=== PATIENT | male | born 1945 | race Caucasian/White ===

== ENCOUNTER 2023-05-13 10:01 | Inpatient (IN) | payer OTHER, SELFPAY ==
[2023-05-13] VITALS (9 sets, daily range): BP systolic 77–113; BP diastolic 57–74; BMI 32.2
--- NOTE | 2023-05-13 07:48 | W.PN.CARDCBS ---
Addendum entered and electronically signed by Isaias Bentley DO 05/13/23 13:04:
I saw and examined the patient.
The Linux Administrator's note was reviewed and I agree with the note.
Comment:
Plan:
Currently in SVT/atrial tachycardia with ventricular rate. He is largely asymptomatic, however, episodes of hypotension after IV Lopressor.
In light of the fact that his rates are significantly rapid with inability to use Cardizem secondary to angioedema and difficult to control rates we discussed cardioversion and he was agreeable to this. He has not eaten today.
Discussed with electrophysiology.
Continue Xarelto.
We will proceed with Tikosyn loading
IV fluid hydration for blood pressure support.
Urgent echo shows preserved LV function.
Discussed with nursing.
Original Note:
Today's Communication / Plan
-
Lopressor 5 mg IV x1 now and then repeat 1-2x more for HR control
He is allergic to Cardizem, it causes angioedema
No missed doses of Xarelto
Need labs back to calculate CrCl and then dose Tikosyn
Impression / Plan
-
PCP: Dr. Sammi Saeed
Cardiology: Dr. Finch
EP: Dr. Dagoberto Jimenez
Impression:
Direct admission for Tikosyn loading for persistent Afib 05/13/23
Afib with RVR on admission 05/13/23
Paroxysmal to persistent Afib
s/p PVI 07/2016
s/p PVI 04/22/17
previous sotalol use, last dose 05/07/23
Chronic Xarelto OAC
Hepatitis C
Moderate MR
Recovered CM EF 45% 2016 and now 60-65% by echo 02/02/19
Echo 02/02/19: EF 60-65%, Mobile echo density consistent with mitral valve chordal structure, mild MR
Plan:
-Patient was seen in the office 04/24/23 following an admission to [facility] for cellulitis, hypomagnesemia and hypokalemia. During that admission he had a recurrence of Afib that was managed with a CV prior to d/c on 03/22/23. Patient was in SR
when he saw Dr. Finch in the office 04/24/23, but then called the office to report recurrence of Afib on 05/07/23. Patient was told to stop sotalol, increase Toprol XL to 50 mg daily and was scheduled for Tikosyn admission 05/13/23. Patient is not
sure what his HR was prior to admission, but HR on admission to IVU was 173 bpm. He complains of BAUGH, but no chest pain or palpitations.
-Patient presents for Tikosyn loading with rapid Afib. He took Toprol XL 25 mg this AM. Patient has a h/o angioedema allergy with Cardizem in the past. Will give Lopressor 5 mg IV x1 now and repeat in 5-10 minutes.
-Start Tikosyn once labs are back and CrCl can be calculated
-Patient has not missed any doses of Xarelto
-Patient with recent admission to [facility] for cellulitis and while there he had hypomagnesemia and hypokalemia. Follow up on electrolytes this admission
-Check pro-BNP
Progress Note - Flask Maker
Subjective
Date of Service: May 13, 2023
He has BAUGH that got worse after stopping sotalol last week
Objective
Labs:
Ordered and pending.
Hgb 13.5, WBC 12.8, Plt 233
Vital Signs and I&O:
100/74, HR 172, RR 18, pulse ox 93% RA
Physical Exam
Physical Exam
GEN: NAD, AAOx3
HEENT: EOMI, MMM
LUNGS: CTA B/L, no wheezes/rales
CV: Rapid and irreg irreg, difficult to appreciate murmur
ABD: soft, BS+, NT, ND
EXT: No clubbing, cyanosis, lesions or edema B/L
NEURO: Gross non-focal
SKIN: Warm, dry and pink. No rash
--- NOTE | 2023-05-13 10:24 | PTCARENOTE ---
patient arrived to unit, monitor on Afib with HR 173, BP 100/74, BAUGH and at rest . patient does feel high HR. INT placed and labs drawn and sent to lab. Karlene Bird aware of patients arrival to unit.
[2023-05-13 10:47] LABS: Hematocrit 38.5 % (39.0-52.0); Hemoglobin 13.5 g/dL (13.0-18.0); Mean Corp Hgb Conc. 35.1 g/dL (33.0-37.0); Mean Corpuscular Hgb 29.9 pg (27.0-31.0); Mean Corpuscular Volume 85.4 fL (80.0-94.0); Mean Platelet Volume 9.8 fL (7.4-10.4); Platelet Count 233 10^3/uL (130-400); Red Blood Cell Count 4.51 10^6/uL (4.70-6.10); Red Cell Dist. Width 13.3 % (11.5-14.5); White Blood Cell Count 12.8 10^3/uL (4.8-10.8)
[2023-05-13] MEDS: LOPRESSOR 5 MG IV (10:53)
[2023-05-13] MEDS: CATAPRES PO ×2 (10:56→19:34)
[2023-05-13] MEDS: NORVASC PO (10:56)
[2023-05-13] MEDS: TOPROL XL PO (10:57)
[2023-05-13] MEDS: ZESTRIL PO (10:57)
[2023-05-13] MEDS: LASIX 40 MG PO (10:58)
[2023-05-13] MEDS: FLUSH (NSS) 1 FLUSH IV (10:58)
[2023-05-13] MEDS: PROTONIX 40 MG PO (10:58)
--- NOTE | 2023-05-13 11:00 | PTCARENOTE ---
HR 172, lopressor 5mg IV given as ordered.
--- NOTE | 2023-05-13 11:06 | PTCARENOTE ---
Addendum entered by Kelsey Son RN 05/13/23 11:14:
repeat BP 91/58.
Original Note:
after 5mg IV lopressor HR decreased to 140's, BP 77/57, Karlene JOYNER in room.
[2023-05-13 11:10] LABS: ALT (SGPT) 35 U/L (0-50); AST (SGOT) 32 U/L (17-59); Albumin 4.2 g/dl (3.5-5.0); Alkaline Phosphatase 70 U/L (38-126); Blood Urea Nitrogen 16 mg/dl (9-20); Calcium 9.1 mg/dl (8.4-10.2); Carbon Dioxide 24 mmol/L (22-30); Chloride 98 mmol/L (98-107); Glucose 134 mg/dl (70-99); Magnesium 1.5 mg/dl (1.6-2.3); Potassium 3.8 mmol/L (3.5-5.1); Sodium 132 mmol/L (135-145); Total Bilirubin 1.2 mg/dl (0.2-1.3); Total Protein 7.7 g/dl (6.3-8.2); eGFR > 60.00
--- NOTE | 2023-05-13 11:21 | W.CARD.TIKOS ---
Initiate Tikosyn
-
I verify that the patient has not taken any verapamil (Isoptin/Calan), ketoconazole (Nizoral), cimetidine (Tagamet), trimethoprim (Trimpex), trimethoprim/sulfamethoxazole (Bactrim), megesterol (Megace), prochlorperazine (Compazine),
hydrochlorothiazide (HCTZ), dolutegravir (Tivicay) or any Class I or Class III anti-arrhythmic within the last three days
AND
I verify that the patient has not taken amiodarone within the last THREE months, or that the patient's amiodarone plasma concentration is <0.3 mcg/mL.
Creatinine 1.0 mg/dL (0.7-1.3) 05/13/23 10:41
CrCl89
Does patient have a Ventricular Conduction Abnormality: Yes
I have assessed the baseline QTc interval (using QT for heart rate less than 60 bpm) and deemed the patient is appropriate for Dofetilide therapy. I understand that Tikosyn is contraindicated if the QTc is >440msec (500msec in patients with
ventricular conduction abnormalities).
Baseline QTc (in msec): 465
QTc interval is greater than 440msec without conduction abnormality OR greater than 500msec with a conduction abnormality, but acceptable to proceed per Cardiology attending.
Reason for Administration with Prolonged QTc: Bundle Branch Block and Other Atrial Arrhythmia
Ordering Physician: Murray Finch
--- NOTE | 2023-05-13 11:27 | CM ---
Reviewed chart. Met with Mr. Rutledge to review discharge plans. He states prior to admission he resides with his significant other in a two story home with three steps to enter. He states he has a full flight of steps to get to bedroom. He states he
has a full bathroom on each level. He states prior to admission he was independent with ambulation and adls. He states he does not have any DME in the home. He states he has a prescription plan and uses [facility]. HE will need a three day
script to be sent to . Pharmacy for a three day supply to go home with him. Will check on co-pay for Dofetilide once dosing starts. Medical work-up in progress. The discharge plan is to return home with his significant other when medically
stable.
--- NOTE | 2023-05-13 11:29 | W.PN.UPDATE ---
Update Note
Progress Note Update
Back in to see patient and BP dropped to 77/47 after Lopressor 5 mg IV x1. Patient denies lightheadedness. Denies palpitations. HRs improved to 140s. He cannot take Cardizem due to allergy of angioedema. Last dose of sotalol was Saturday. Will give
NSS 250 ml bolus slowly. He has a h/o CM EF 45% in 2017 and then improved to 60% in 2019. Recheck echo now even though it is suboptimal with rapid HRs, if EF normal then can be more aggressive with IVFs. Will try another dose of Lopressor 2.5 mg IV
x1 now.
Update 1248: Back in to see patient. He remains in rapid atrial tachycardia. HRs improved to the 150s with Lopressor 2.5 mg IV x1, but BP down again to 84/47. Patient has not had anything to eat today. He took sips of water since admission. Will set
up for CV today. Tikosyn 500 mcg PO x1 ordered on admission, then held while working through rapid Atach, but after talking with EP will move forward with Tikosyn loading.
Check on patient in room 4 times, reviewed with nursing, EP and attending. 49 minutes thus far in critical care time. Will continue to follow.
--- NOTE | 2023-05-13 11:44 | PTCARENOTE ---
IV NSS infusing as ordered. Echo being done at bedside.
[2023-05-13 11:47] LABS: NT-proBNP 11300 pg/ml
[2023-05-13] MEDS: LOPRESSOR 2.5 MG IV (11:59)
[2023-05-13] MEDS: NSS 250 IV (12:00)
--- NOTE | 2023-05-13 12:04 | PTCARENOTE ---
Echo completed. IVF infusing as ordered, additional lopressor 2.5mg IV given as ordered. BP 86/69 with a HR 172. Dr. Bentley is at bedside.
--- NOTE | 2023-05-13 13:53 | PTCARENOTE ---
report given to research laboratory manager, patient is going for a CV.
--- NOTE | 2023-05-13 14:04 | PTCARENOTE ---
Addendum entered by Kelsey Son RN 05/13/23 14:07:
will obtain flu and covid swab.
Original Note:
patient went to pipelines laborer for CV, temp. 99.8, received call from pipelines laborer , CHRISTIANNE Bird.
--- NOTE | 2023-05-13 14:51 | ITS.CL.CARDI ---
Chopper Gun Operator - Cardioversion
Cardioversion
Procedure Report:
Date of Procedure: May 13 2023
Procedure: Cardioversion
Indication: Symptomatic atrial tachycardia/SVT
Performing Physician: Isaias Bentley DO, FACC
Technique: The patient was brought to the holding area. Signed informed consent was obtained. A time out was called and performed. The patient was anesthetized by the anesthesia service. Anticoagulation status was reviewed and appropriate. R2 pads
were placed anteriorly and posteriorly. A 200) J synchronized biphasic shock restored normal sinus rhythm without significant bradycardia. There were no complications.
Conclusion: Uncomplicated cardioversion from atrial tachycardia/SVT to sinus rhythm.
Recommendation: Routine post cardioversion care. Continue senior care anticoagulation.
[2023-05-13 14:55] LABS: COVID-19 Antigen Negative (Negative)
[2023-05-13] MEDS: TIKOSYN 500 MCG PO (15:45)
--- NOTE | 2023-05-13 15:47 | PTCARENOTE ---
patient returned from CV, monitor shows ST BP 105/65, HR 95. first dose of Tikosyn given as ordered and will obtain EKG at 1745.
--- NOTE | 2023-05-13 16:03 | PTCARENOTE ---
patient is neg. for flu, and patient afebrile.
[2023-05-13] MEDS: LIPITOR 20 MG PO (17:37)
[2023-05-13] MEDS: XARELTO 20 MG PO (17:37)
--- NOTE | 2023-05-13 17:43 | PTCARENOTE ---
obtaining EKG 2 hours after giving first dose of tikosyn, EKG shows aflutter, QTC 498, TT Dr. Candelaria Jimenez.
--- NOTE | 2023-05-13 23:53 | PTCARENOTE ---
Received pt at handoff. AOx3. Tele- sinus arrhythmia. HR 80-90s. Assessment noted as documented. Pt w/ moist productive cough sating at 96% RA. Pt offers no complaints at this time. POC reviewed w/ pt. Currently in bed; call wali w/in reach.
[2023-05-14] VITALS (7 sets, daily range): BP systolic 93–146; BP diastolic 62–87; BMI 31.9
[2023-05-14 04:37] LABS: Blood Urea Nitrogen 22 mg/dl (9-20); Calcium 8.8 mg/dl (8.4-10.2); Carbon Dioxide 29 mmol/L (22-30); Chloride 100 mmol/L (98-107); Estimated Creatinine Clearance 89 ml/min; Glucose 123 mg/dl (70-99); Potassium 3.6 mmol/L (3.5-5.1); Sodium 135 mmol/L (135-145); eGFR > 60.00
[2023-05-14] MEDS: TIKOSYN 500 MCG PO ×2 (05:01→17:33)
[2023-05-14] MEDS: CATAPRES 0.200000000000000011 MG PO ×2 (08:13→19:34)
[2023-05-14] MEDS: LASIX 40 MG PO (08:14)
[2023-05-14] MEDS: PROTONIX 40 MG PO (08:14)
[2023-05-14] MEDS: NORVASC 10 MG PO (08:14)
[2023-05-14] MEDS: TOPROL XL 50 MG PO (08:14)
[2023-05-14] MEDS: ZESTRIL 40 MG PO (08:14)
[2023-05-14] MEDS: NON-FORMULARY ITEM 4.79999999999999982 GRAM PO (08:15)
[2023-05-14] MEDS: FLUSH (NSS) 1 FLUSH IV ×4 (08:16→22:10)
--- NOTE | 2023-05-14 09:06 | PTCARENOTE ---
Received patient this morning sitting oob in the chair. Patient is worried that his cellulitis he had back in February has returned. Temp is 99.2, patient feels like he has slight chills, LLE is very red, warm and lateral area is firm. Cardiology
notified.
--- NOTE | 2023-05-14 09:47 | W.PN.CARDCBS ---
Addendum entered and electronically signed by Abdulaziz Bradford MD 05/14/23 11:51:
I saw and examined the patient.
The Inventory Associate And Driver's note was reviewed and I agree with the note.
Comment: 77M PMHx persistent atrial fibrillation who presents for Tikosyn load as direct admission
He underwent direct-current cardioversion yesterday and is subsequently maintaining sinus rhythm
Continue to monitor on telemetry
Serial EKGs, QTc is within normal limits
Tentative plan for discharge after fifth dose tomorrow
Appreciate hospital medicine input regarding possible recurrence of lower extremity cellulitis
Original Note:
Today's Communication / Plan
-
Hospitalists consult for cellulitis
Remains in SR, QTc stable with Tikosyn 500 mcg q 12 hours loading, 3rd dose tonight, 5th dose will be tomorrow night
Impression / Plan
-
PCP: Dr. Sammi Saeed
Cardiology: Dr. Finch
EP: Dr. Dagoberto Jimenez
Impression:
Direct admission for Tikosyn loading for persistent Afib 05/13/23
Afib with RVR on admission 05/13/23
Paroxysmal to persistent Afib
s/p PVI 07/2016
s/p PVI 04/22/17
previous sotalol use, last dose 05/07/23
Chronic Xarelto OAC
Hepatitis C
Moderate MR
Recovered CM EF 45% 2016 and now 60-65% by echo 02/02/19
Possible LLE cellulitis
Echo 02/02/19: EF 60-65%, Mobile echo density consistent with mitral valve chordal structure, mild MR
Echo 05/13/23: EF 52%, mild MR, mild to mod TR with PAP 19 mmHg
Plan:
-Patient came to as a direct admission for Tikosyn loading 05/13/23. Patient was in rapid Atach with HRs in the 170s on admission, but asymptomatic. HR control was difficult due to Cardizem allergy. Lopressor IV was given and he developed
hypotension. Finally patient had an urgent CV 05/13/23 with nondenominational of SR.
-Patient remains in SR with QTc 466 by ECG 05/14/23 AM after 2nd dose of Tikosyn 500 mcg.
-BP improved now that he is back in SR. Cont higher dose Toprol XL 50 mg daily that was started just prior to admission.
-Outpatient dose of clonidine 0.2 mg BID has been continued with hold parameters
-Outpatient dose of lisinopril 40 mg daily has been continued with hold parameters. Cre is stable at 0.8
-Patient has not missed any doses of Xarelto
-Patient with recent admission to [facility] for cellulitis and while there he had hypomagnesemia and hypokalemia. Magnesium was 1.5 on 05/13/23, will supplement. Potassium is 3.6 on 05/14/23, will supplement.
-pro-BNP [id number]. He denies SOB. Patient is at dry weight.
-Will ask Hospitalist for a consult for LLE erythema. Patient reports chills the night prior to admission. Temp up to 99.2 degrees Fahrenheit. He was treated for cellulitis at [facility] early March and he says he completed his outpatient
course of antibiotics.
HPI: Patient was seen in the office 04/24/23 following an admission to [facility] for cellulitis, hypomagnesemia and hypokalemia. During that admission he had a recurrence of Afib that was managed with a CV prior to d/c on 03/22/23. Patient was
in SR when he saw Dr. Finch in the office 04/24/23, but then called the office to report recurrence of Afib on 05/07/23. Patient was told to stop sotalol, increase Toprol XL to 50 mg daily and was scheduled for Tikosyn admission 05/13/23. Patient is
not sure what his HR was prior to admission, but HR on admission to IVU was 173 bpm. He complains of BAUGH, but no chest pain or palpitations.
Progress Note - Optometric Technologist
Subjective
Date of Service: May 14, 2023
He says that his LLE looks just like it did when he had cellulitis last month
Objective
Labs:
05/13/23 10:41
05/14/23 03:50
Labs
Hgb 13.5 g/dL (13.0-18.0) 05/13/23 10:41
Hct 38.5 % (39.0-52.0) L 05/13/23 10:41
Plt Count 233 10^3/uL (130-400) 05/13/23 10:41
Sodium 135 mmol/L (135-145) 05/14/23 03:50
Potassium 3.6 mmol/L (3.5-5.1) 05/14/23 03:50
BUN 22 mg/dl (9-20) H 05/14/23 03:50
Creatinine 0.8 mg/dL (0.7-1.3) 05/14/23 03:50
Glucose 123 mg/dl (70-99) H 05/14/23 03:50
Vital Signs and I&O:
Vital Signs
Temp Pulse Resp BP Pulse Ox
99.2 F 91 16 146/87 95
05/14/23 07:59 05/14/23 08:00 05/14/23 07:59 05/14/23 07:59 05/14/23 07:59
Vital Signs
Temp Pulse Resp BP Pulse Ox
99.2 F 91 16 146/87 95
05/14/23 07:59 05/14/23 08:00 05/14/23 07:59 05/14/23 07:59 05/14/23 07:59
Intake & Output
05/12/23 05/13/23 05/14/23 05/15/23
06:59 06:59 06:59 06:59
Intake Total 490 / 490 360 / 360
Balance 490 / 490 360 / 360
Physical Exam
Physical Exam
GEN: NAD, AAOx3
HEENT: EOMI, MMM
LUNGS: CTA B/L, no wheezes/rales
CV: Reg
ABD: soft, BS+, NT, ND
EXT: LLE erythematous, nontender, warm to touch. No clubbing, cyanosis, or edema B/L
NEURO: Gross non-focal
SKIN: Warm, dry and pink. No rash
[2023-05-14] MEDS: MAGNESIUM OXIDE 500 MG PO (10:42)
[2023-05-14] MEDS: KCL 40 MEQ PO (10:43)
--- NOTE | 2023-05-14 10:54 | CM ---
Reviewed chart. Met with Mr. Carpio to review discharge plans. Telephone call to [facility],([phone]) to check on co-pay for Dofetilide 500 mcg bid. His co-pay for one month is $30.41 and for a 90 day supply his co-pay would be
$91.23. Reviewed co-pay with him. He is agreeable to the co-pay. Telephone call to [facility] to check if they have Dofetilide in stock. [facility] had one bottle of 60 tablets of Dofetilide 500 mcg in stock. He will need a three day script
sent to . Pharmacy for a three day supply to be sent home with him. Medical work-up in progress. Prior to admission he resides with his significant other in a two story home with three steps to enter. He has a full flight of steps to get to
bedroom. He has a full bathroom on each floor. Prior to admission he was independent with ambulation and adls. He does not have any DME in the home. He has a prescription plan and uses [facility]. Medical work-up in progress. The
discharge plan is to return home with his significant other when medically stable.
--- NOTE | 2023-05-14 12:57 | CON.HOSP ---
Family Physician
-
Family Physician: Sammi Saeed DO
Chief Complaint
-
Left leg redness and pain
History of Present Illness
77-year-old male with a past medical history of atrial fibrillation on Xarelto, hypertension, hyperlipidemia, systolic CHF, hepatitis C, and ulcerative colitis was admitted by cardiology on 05/13/2023 for Tikosyn loading. Patient started having
chills 2 days ago, accompanied by low-grade fevers with a Tmax of 99.2. This morning, he developed erythema and tenderness of his left lower extremity. These are the exact same symptoms he had when he had cellulitis of his left lower extremity in
March 2023. He was treated with IV antibiotics at [place] at that time, and discharged on oral antibiotics. Currently the pain is 4 out of 10 in intensity. His leg is warm to the touch.
Medical History
Past Medical History
Past Medical History: Reports Other
Additional Past Medical History:
Recurrent paroxysmal atrial fibrillation status post JESU cardioversion 08/15/2017
History of 2 ablations in the past
Moderate mitral regurgitation
Premature atrial contractions
Cardiomyopathy with EF of 45% and mild to moderate MR
Essential hypertension
Hyperlipidemia
Ulcerative colitis
Hepatitis C
Osteoarthritis
Skin cancer
Obesity
Gastroesophageal reflux disease
Past Surgical History: Reports Other
Additional Past Surgical History:
Bilateral hip replacement
Left arm repair with steel plate
Umbilical hernioplasty
Nasal septal surgery
Social History
Tobacco: Former Smoker
Alcohol: Occasional
Drug: None
Personal: Partner
Living: With Family
Family History
Family History: Reviewed & Not Pertinent
Allergies / Home Medications
Allergies reflects when Allergies were last updated in [employer]
Home Medications with original date entered in [employer]
Allergy/Medication List:
Allergies
Allergy/AdvReac Type Severity Reaction Status Date / Time
diltiazem [From Cardizem] Allergy Severe Tongue Verified 08/15/17 12:14
Swelling
HAYFEVER Allergy CONGESTION Uncoded 08/15/17 12:14
Home Medications Table - record
Medication Instructions Recorded Confirmed
clonidine HCl 0.1 mg tablet 0.2 mg PO BID 02/07/16 05/13/23
pantoprazole 40 mg tablet,delayed 40 mg PO DAILY 02/07/16 05/13/23
release
furosemide 40 mg tablet 40 mg PO DAILY ##30 02/08/16 05/13/23
atorvastatin 10 mg tablet 10 mg PO QPM 07/23/16 05/13/23
rivaroxaban 20 mg tablet (Xarelto) 20 mg PO QPM ##30 07/23/16 05/13/23
calcium carbonate 600 mg calcium 600 mg PO DAILY 08/15/17 05/13/23
(1,500 mg) tablet
cholecalciferol (vitamin D3) 50 1,000 unit PO DAILY 08/15/17 05/13/23
mcg (2,000 unit) tablet
magnesium oxide 500 mg capsule 500 mg PO DAILY 08/15/17 05/13/23
metoprolol succinate 25 mg 25 mg PO DAILY ##30 08/17/17 05/13/23
tablet,extended release 24 hr
mesalamine 1.2 gram tablet,delayed 4.8 g PO DAILY 05/13/23 05/13/23
release
Physical Exam
Vital Signs
Vital Signs
Temp Pulse Resp BP Pulse Ox
99.1 F 84 20 122/83 95
05/14/23 11:17 05/14/23 11:45 05/14/23 11:17 05/14/23 11:15 05/14/23 11:17
Physical Exam
General: No Apparent Distress
HEENT: Normocephalic and Moist Mucous Membranes
Respiratory: Clear
Cardiac: S1/S2 and Irregular Rhythm
GI: Soft, Non Tender, Non Distended and Normal Bowel Sounds
Musculoskeletal: No Clubbing and No Cyanosis
Skin: Other (Left calf and grimaldo are warm to the touch, with scattered erythema)
Neuro: Awake, Alert and Oriented
Psych: Calm
Laboratory Results
-
Laboratory Results
05/14/23 03:50
Total Bilirubin 1.2 mg/dl (0.2-1.3) 05/13/23 10:41
AST 32 U/L (17-59) 05/13/23 10:41
ALT 35 U/L (0-50) 05/13/23 10:41
Alkaline Phosphatase 70 U/L (38-126) 05/13/23 10:41
Impression / Plan
-
HPI: 77-year-old male with a past medical history of atrial fibrillation on Xarelto, hypertension, hyperlipidemia, systolic CHF, hepatitis C, and ulcerative colitis was admitted by cardiology on 05/13/2023 for Tikosyn loading. Patient started having
chills 2 days ago, accompanied by low-grade fevers with a Tmax of 99.2. This morning, he developed erythema and tenderness of his left lower extremity. These are the exact same symptoms he had when he had cellulitis of his left lower extremity in
March 2023. He was treated with IV antibiotics at [place] at that time, and discharged on oral antibiotics. Currently the pain is 4 out of 10 in intensity. His leg is warm to the touch.
#Persistent atrial fibrillation
Tikosyn loading as per cardiology
Continue Xarelto, metoprolol
Cardiology planning for discharge after fifth dose of Tikosyn tomorrow
#Left lower extremity cellulitis
Check blood cultures, start IV Ancef
Check lower extremity Dopplers for completeness sake
Likely can be discharged on Keflex
#Chronic systolic CHF
Continue Lasix
#Benign essential hypertension
Continue amlodipine, clonidine, lisinopril
#Hyperlipidemia
Continue statin
#Ulcerative colitis
Continue mesalamine
#Gastroesophageal reflux disease
Continue PPI
#Obesity due to excess calories
Affects all aspects of care
DVT prophylaxis�Xarelto
Thank you for the consult, we will follow the patient along with you.
[2023-05-14 13:39] LABS: % Basophils 0.2 % (0-2); % Eosinophils 0.2 % (0-6); % Immature Granulocytes 0.3 % (0-0.5); % Monocytes 10.5 % (1.7-9.3); % Neutrophils 78.8 % (42.2-75.2); Absolute Lymphocytes 0.9 10^3/uL (1.2-3.4); Absolute Neutrophils 7.2 10^3/uL (1.4-6.5); Hematocrit 37.8 % (39.0-52.0); Hemoglobin 13.3 g/dL (13.0-18.0); Mean Corp Hgb Conc. 35.2 g/dL (33.0-37.0); Mean Corpuscular Hgb 30.4 pg (27.0-31.0); Mean Corpuscular Volume 86.3 fL (80.0-94.0); Mean Platelet Volume 9.6 fL (7.4-10.4); Nucleated Red Blood Cells % 0 % (-); Platelet Count 183 10^3/uL (130-400); Red Blood Cell Count 4.38 10^6/uL (4.70-6.10); Red Cell Dist. Width 13.3 % (11.5-14.5); White Blood Cell Count 9.2 10^3/uL (4.8-10.8)
[2023-05-14 14:09] LABS: Procalcitonin 0.26 ng/ml (0.0-0.25)
[2023-05-14] MEDS: ANCEF 5 IV ×2 (14:56→22:09)
--- NOTE | 2023-05-14 15:07 | PTCARENOTE ---
Patient seen by the hospitalist. Blood cultures and lab work sent. Patient started on ancef IV as ordered.
[2023-05-14] MEDS: XARELTO 20 MG PO (17:32)
[2023-05-14] MEDS: LIPITOR 20 MG PO (17:32)
[2023-05-14] MEDS: PERCOCET 5/325 1 TABLET PO (17:32)
[2023-05-14 17:48] LABS: Urine Albumin Negative (Neg - Trace); Urine Bilirubin Negative (Negative); Urine Character Clear (Clear); Urine Color Yellow; Urine Glucose Negative (Negative); Urine Ketone Negative (Negative); Urine Leukocyte Negative (Negative); Urine Nitrite Negative (Negative); Urine Occult Blood Trace (Negative); Urine Specific Gravity 1.015 (<1.030); Urine Urobilinogen Negative (Neg - 1+)
[2023-05-14 18:03] LABS: Urine White Cell 0-2 /HPF (0-5)
--- NOTE | 2023-05-14 21:53 | PTCARENOTE ---
Received pt at handoff. Tikosyn dose #3 administered by pina RN at 1800. 2 hour post EKG obtained. QTC 541. Edwardo Giordano MD notified. Tikosyn dose #4 on hold until seen by cardiology per Edwardo Giordano MD. Pt offers no complaints at this time. POC
reviewed w/ pt. Tele remains in SR. Assessment noted as documented. Currently in bed; call wali w/in reach.
[2023-05-14] MEDS: PERCOCET 5/325 PO (22:15)
[2023-05-15] VITALS (7 sets, daily range): BP systolic 108–135; BP diastolic 70–95; BMI 31.9
[2023-05-15] MEDS: PERCOCET 5/325 1 TABLET PO ×2 (05:08→22:18)
[2023-05-15] MEDS: ANCEF 5 IV ×3 (05:08→22:18)
[2023-05-15] MEDS: FLUSH (NSS) 1 FLUSH IV ×3 (05:08→14:44)
[2023-05-15 05:11] LABS: % Basophils 0.3 % (0-2); % Eosinophils 1.3 % (0-6); % Immature Granulocytes 0.3 % (0-0.5); % Monocytes 12.7 % (1.7-9.3); % Neutrophils 69.4 % (42.2-75.2); Absolute Eosinophils 0.1 10^3/uL (0-0.7); Absolute Monocytes 0.8 10^3/uL (0.1-0.6); Absolute Neutrophils 4.2 10^3/uL (1.4-6.5); Hemoglobin 12.5 g/dL (13.0-18.0); Mean Corp Hgb Conc. 34.7 g/dL (33.0-37.0); Mean Corpuscular Volume 86.3 fL (80.0-94.0); Mean Platelet Volume 10.3 fL (7.4-10.4); Nucleated Red Blood Cells % 0 % (-); Platelet Count 156 10^3/uL (130-400); Red Blood Cell Count 4.17 10^6/uL (4.70-6.10); Red Cell Dist. Width 13.2 % (11.5-14.5); White Blood Cell Count 6.1 10^3/uL (4.8-10.8)
[2023-05-15 05:25] LABS: Blood Urea Nitrogen 14 mg/dl (9-20); Calcium 8.4 mg/dl (8.4-10.2); Carbon Dioxide 28 mmol/L (22-30); Chloride 106 mmol/L (98-107); Estimated Creatinine Clearance 119 ml/min; Glucose 126 mg/dl (70-99); Magnesium 1.9 mg/dl (1.6-2.3); Potassium 3.6 mmol/L (3.5-5.1); Sodium 137 mmol/L (135-145); eGFR > 60.00
--- NOTE | 2023-05-15 08:37 | W.PN.HOSP.TC ---
Today's Communication/Plan
-
Continue IV Ancef while inpatient
Recommend discharge on Keflex 500 mg 4 times daily for 8 days upon discharge to complete a 10 day course
Assessment / Plan
Assessment / Plan
HPI: 77-year-old male with a past medical history of atrial fibrillation on Xarelto, hypertension, hyperlipidemia, systolic CHF, hepatitis C, and ulcerative colitis was admitted by cardiology on 05/13/2023 for Tikosyn loading.� Patient started having
chills 2 days ago, accompanied by low-grade fevers with a Tmax of 99.2.� This morning, he developed erythema and tenderness of his left lower extremity.� These are the exact same symptoms he had when he had cellulitis of his left lower extremity in
March 2023.� He was treated with IV antibiotics at [place] at that time, and discharged on oral antibiotics.� Currently the pain is 4 out of 10 in intensity.� His leg is warm to the touch.
#Persistent atrial fibrillation
Tikosyn loading as per cardiology
Continue Xarelto, metoprolol
Cardiology planning for discharge tomorrow
#Left lower extremity cellulitis
Continue IV Ancef while inpatient
Recommend discharge on Keflex 500 mg 4 times daily for 8 days upon discharge to complete a 10 day course
#Chronic systolic CHF
Continue Lasix
#Benign essential hypertension
Continue amlodipine, clonidine, lisinopril
#Hyperlipidemia
Continue statin
#Ulcerative colitis
Continue mesalamine
#Gastroesophageal reflux disease
Continue PPI
#Obesity due to excess calories
Affects all aspects of care
DVT prophylaxis�Xarelto
Thank you for the consult, we will follow the patient along with you.
Physical Exam
General: Obese, no Apparent Distress
HEENT: Normocephalic and Moist Mucous Membranes
Respiratory: Clear
Cardiac: S1/S2 and Irregular Rhythm
GI: Soft, Non Tender, Non Distended and Normal Bowel Sounds
Musculoskeletal: No Clubbing and No Cyanosis
Skin: Left calf and grimaldo are warm to the touch, with scattered erythema - now darkened
Neuro: Awake, Alert and Oriented
Psych: Calm
Anticipated Discharge: Within 24 hours
Subjective/Interval History
-
Date of Service: May 15, 2023
Patient reports low-grade fever, chills resolved. His left lower extremity pain has improved.
Objective Data
-
Labs:
Laboratory Results
05/15/23
04:58
WBC 6.1
Hgb 12.5 L
Hct 36.0 L
Plt Count 156
Sodium 137
Potassium 3.6
Chloride 106
Carbon Dioxide 28
BUN 14
Creatinine 0.5 L
Glucose 126 H
Calcium 8.4
Vital Signs:
Vital Signs
Temp Pulse Resp BP Pulse Ox
98.2 F 71 16 126/85 96
05/15/23 06:51 05/15/23 07:30 05/15/23 06:51 05/15/23 06:53 05/15/23 06:51
I&O
05/14/23 05/15/23 05/16/23
06:59 06:59 06:59
Intake Total 490 / 490 1000 / 1000
Balance 490 / 490 1000 / 1000
--- NOTE | 2023-05-15 08:37 | W.PN.CARDCBS ---
Addendum entered and electronically signed by sIaias Bentley DO 05/15/23 09:13:
I saw and examined the patient.
The Electrical Logging Engineer's note was reviewed and I agree with the note.
Comment:
Plan:
With increase in QTc, Tikosyn dose reduced to 250 mcg BID for today.
Observe today and lkely d/c tomorrow if QTc remains stable
Remains in sinus
Cont xarelto and Toprol
Appreciate hospitalist input regarding cellulitis
Outpt follow up to be arranged.
Discussed with nursing.
Original Note:
Today's Communication / Plan
-
decrease tikosyn to 250mcg Q12H for doses 4/5 today
follow QTc
continue toprol, xarelto
treatment of cellulitis per primary service
KCl 10 mEq daily. BMP in 1 week upon DC
likely for DC in AM
Impression / Plan
-
PCP: Dr. Sammi Saeed
Cardiology: Dr. Finch
EP: Dr. Dagoberto Jimenez
Impression:
Direct admission for Tikosyn loading for persistent Afib 05/13/23
Afib with RVR on admission 05/13/23
Paroxysmal to persistent Afib
s/p PVI 07/2016
s/p PVI 04/22/17
previous sotalol use, last dose 05/07/23
Chronic Xarelto OAC
Hepatitis C
Moderate MR
Recovered CM EF 45% 2016 and now 60-65% by echo 02/02/19
Possible LLE cellulitis
Echo 02/02/19: EF 60-65%, Mobile echo density consistent with mitral valve chordal structure, mild MR
Echo 05/13/23: EF 52%, mild MR, mild to mod TR with PAP 19 mmHg
Plan:
-he was a direct admission for tikosyn and was in rapid atach upon arrival. underwent urgent CV 05/13 with yazidism of SR.
-upon review of tele has remained mostly in SR with PACs and several brief episodes of atach.
-by review of EKGs, his QTc prolonged to 541ms after 3rd dose of tikosyn 05/14 PM. will reduce dose of tikosyn to 250mcg Q12H and follow. for doses 4/5 today. he will stay overnight to follow his QTc.
-continue higher dose Toprol XL 50 mg daily that was started just prior to admission.
-continue OP Xarelto
-pro-BNP 23629. He denies SOB. Patient is at dry weight. continue OP lasix 40mg daily.
-Outpatient dose of clonidine 0.2 mg BID has been continued with hold parameters
-Outpatient dose of lisinopril 40 mg daily has been continued with hold parameters. Cre is stable at 0.8
-he is being treated with IV ancef for LLE cellulitis per hospitalists. He was treated for cellulitis at [facility] early March and he says he completed his outpatient course of antibiotics.
-he was also hypokalemic and hypomagnesemic during [facility] admission. will place on standing dose of po KCl 10 mEq daily.
-will need BMP in 1 week upon DC
-for DC in AM
-d/w nursing. d/w hospitalist
HPI: Patient was seen in the office 04/24/23 following an admission to [facility] for cellulitis, hypomagnesemia and hypokalemia. During that admission he had a recurrence of Afib that was managed with a CV prior to d/c on 03/22/23. Patient was
in SR when he saw Dr. Finch in the office 04/24/23, but then called the office to report recurrence of Afib on 05/07/23. Patient was told to stop sotalol, increase Toprol XL to 50 mg daily and was scheduled for Tikosyn admission 05/13/23. Patient is
not sure what his HR was prior to admission, but HR on admission to IVU was 173 bpm. He complains of BAUGH, but no chest pain or palpitations.
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
Subjective
Date of Service: May 15, 2023
Denies chest pain, shortness of breath. Reports heart rates are better this morning than last evening. Reports left leg feeling improved.
Objective
Labs:
05/15/23 04:58
05/15/23 04:58
Labs
Hgb 12.5 g/dL (13.0-18.0) L 05/15/23 04:58
Hct 36.0 % (39.0-52.0) L 05/15/23 04:58
Plt Count 156 10^3/uL (130-400) 05/15/23 04:58
Sodium 137 mmol/L (135-145) 05/15/23 04:58
Potassium 3.6 mmol/L (3.5-5.1) 05/15/23 04:58
BUN 14 mg/dl (9-20) 05/15/23 04:58
Creatinine 0.5 mg/dL (0.7-1.3) L 05/15/23 04:58
Glucose 126 mg/dl (70-99) H 05/15/23 04:58
Vital Signs and I&O:
Vital Signs
Temp Pulse Resp BP Pulse Ox
98.2 F 71 16 126/85 96
05/15/23 06:51 05/15/23 07:30 05/15/23 06:51 05/15/23 06:53 05/15/23 06:51
Vital Signs
Temp Pulse Resp BP Pulse Ox
98.2 F 71 16 126/85 96
05/15/23 06:51 05/15/23 07:30 05/15/23 06:51 05/15/23 06:53 05/15/23 06:51
Intake & Output
05/13/23 05/14/23 05/15/23 05/16/23
07:59 07:59 07:59 07:59
Intake Total 490 / 850 1000 / 1000
Balance 490 / 850 1000 / 1000
Physical Exam
Physical Exam
GEN: No distress, awake, alert, oriented x3. sitting in chair
HEENT: supple, anicteric, mmm, eomi
LUNGS: CTA B/L, no wheezes/rales
CV: Reg, S1/S2, no murmur
ABD: soft, BS+, NT/ND
EXT: No cyanosis, clubbing. 1+ edema of LLE with erythema of lateral calf
NEURO: Gross non-focal
SKIN: Warm, pink, dry. No rash
[2023-05-15] MEDS: TIKOSYN 250 MCG PO ×2 (08:57→19:29)
[2023-05-15] MEDS: KCL 10 MEQ PO (08:58)
[2023-05-15] MEDS: ZESTRIL 40 MG PO (08:59)
[2023-05-15] MEDS: PROTONIX 40 MG PO (08:59)
[2023-05-15] MEDS: NORVASC 10 MG PO (08:59)
[2023-05-15] MEDS: TOPROL XL 50 MG PO (09:00)
[2023-05-15] MEDS: CATAPRES 0.200000000000000011 MG PO ×2 (09:00→19:29)
[2023-05-15] MEDS: LASIX 40 MG PO (09:00)
[2023-05-15] MEDS: NON-FORMULARY ITEM 4.79999999999999982 GRAM PO (09:01)
--- NOTE | 2023-05-15 09:12 | PTCARENOTE ---
Patient seen by cardiology and tikosyn dosage decreased due to increased QTc, will recheck EKG at 1100. Patient states discomfort LLE from cellulitis has improved, continue IV ancef as ordered.
--- NOTE | 2023-05-15 10:38 | CM ---
Reviewed chart. Telephone call to [facility] to check if they have Dofetilide 250 mcg bid in stock. [facility] has Dofetilide 250 mcg in stock. Will need to sent a three day script to [facility] for him to take home with him.
Medical work-up in progress. The discharge plan is to return home with his significant other when medically stable.
--- NOTE | 2023-05-15 11:25 | PTCARENOTE ---
Patient given reduced dose of 250mcg of tikosyn, QTc 501, cardiology notified and to continue present dose as scheduled.
[2023-05-15] MEDS: LIPITOR 20 MG PO (17:34)
[2023-05-15] MEDS: XARELTO 20 MG PO (17:34)
--- NOTE | 2023-05-16 01:13 | PTCARENOTE ---
Patient received 5th dose of Tikosyn, and QTc post 475. Denies any chest pain. Tele remains SR w/ BBBC and occasional PACs. HR in the 60-70's, VSS. Call keyes in reach.
[2023-05-16 02:44] VITALS: BP 155/88
[2023-05-16 07:00] VITALS: BP 147/88
[2023-05-16] MEDS: ANCEF 5 IV (08:46)
[2023-05-16] MEDS: PROTONIX 40 MG PO (08:47)
[2023-05-16] MEDS: CATAPRES 0.200000000000000011 MG PO (08:47)
[2023-05-16] MEDS: LASIX 40 MG PO (08:47)
[2023-05-16] MEDS: ZESTRIL 40 MG PO (08:47)
[2023-05-16] MEDS: NORVASC 10 MG PO (08:48)
[2023-05-16] MEDS: KCL 10 MEQ PO (08:48)
[2023-05-16] MEDS: TOPROL XL 50 MG PO (08:48)
[2023-05-16] MEDS: NON-FORMULARY ITEM 1.19999999999999996 GRAM PO (08:49)
[2023-05-16] MEDS: TIKOSYN 250 MCG PO (08:52)
--- NOTE | 2023-05-16 09:23 | W.PN.HOSP.TC ---
Today's Communication/Plan
-
Recommend discharge on cefdinir 300 mg twice a day for 8 days
Assessment / Plan
Assessment / Plan
HPI: 77-year-old male with a past medical history of atrial fibrillation on Xarelto, hypertension, hyperlipidemia, systolic CHF, hepatitis C, and ulcerative colitis was admitted by cardiology on 05/13/2023 for Tikosyn loading.� Patient started having
chills 2 days ago, accompanied by low-grade fevers with a Tmax of 99.2.� This morning, he developed erythema and tenderness of his left lower extremity.� These are the exact same symptoms he had when he had cellulitis of his left lower extremity in
March 2023.� He was treated with IV antibiotics at [facility] at that time, and discharged on oral antibiotics.� Currently the pain is 4 out of 10 in intensity.� His leg is warm to the touch.
#Persistent atrial fibrillation
Tikosyn loading as per cardiology
Continue Xarelto, metoprolol
Cardiology planning for discharge today
#Left lower extremity cellulitis
Continue IV Ancef while inpatient
Although Keflex is the ideal oral antibiotic for cellulitis, apparently there is an interaction between Keflex and Tikosyn
Recommend discharge on cefdinir 300 mg twice a day for 8 days
#Chronic systolic CHF
Continue Lasix
#Benign essential hypertension
Continue amlodipine, clonidine, lisinopril
#Hyperlipidemia
Continue statin
#Ulcerative colitis
Continue mesalamine
#Gastroesophageal reflux disease
Continue PPI
#Obesity due to excess calories
Affects all aspects of care
DVT prophylaxis�Xarelto
Thank you for the consult, we will follow the patient along with you.
Physical Exam
General: Obese, no Apparent Distress
HEENT: Normocephalic and Moist Mucous Membranes
Respiratory: Clear
Cardiac: S1/S2 and Irregular Rhythm
GI: Soft, Non Tender, Non Distended and Normal Bowel Sounds
Musculoskeletal: No Clubbing and No Cyanosis
Skin: Left calf and grimaldo are warm to the touch, with scattered erythema - now darkened
Neuro: Awake, Alert and Oriented
Psych: Calm
Anticipated Discharge: Today
Subjective/Interval History
-
Date of Service: May 16, 2023
Patient's left lower extremity pain continues to improve. No fever, no chills. He is for discharge today.
Objective Data
-
Vital Signs:
Vital Signs
Temp Pulse Resp BP Pulse Ox
97.9 F 78 20 147/88 96
05/16/23 06:56 05/16/23 08:47 05/16/23 06:56 05/16/23 08:47 05/16/23 06:56
I&O
05/15/23 05/16/23 05/17/23
06:59 06:59 06:59
Intake Total 1000 / 1000 720 / 720
Balance 1000 / 1000 720 / 720
--- NOTE | 2023-05-16 09:50 | W.PN.CARDCBS ---
Addendum entered and electronically signed by Lisa Cárdenas DO 05/16/23 14:24:
I saw and examined the patient.
The Correction Lieutenant's note was reviewed and I agree with the note.
Comment: Seen and examined. Patient feeling well and anxious to return home.
GEN: No distress, awake, alert, oriented x3.
HEENT:mmm
LUNGS: CTA B/L, no wheezes/rales
CV: Reg, S1/S2, no murmur
ABD: soft, BS+, NT/ND
EXT: . 1+ edema of LLE with erythema of lateral calf
NEURO: Gross non-focal
Plan:
-He presented as a direct admission for Tikosyn, and rapid A. tach upon arrival.� He required urgent cardioversion 05/13 which was successful in restoring sinus rhythm
-His Tikosyn dose was lowered as of fourth dose 05/15 AM due to prolonged QT.� QT improving.�
-Remains in sinus rhythm with PACs and 1 brief episode of A. tach overnight.�
-Continue Tikosyn 250 mcg Q12H
-continue higher dose Toprol XL 50 mg daily that was started just prior to admission.
-continue OP Xarelto
-Lower extremity cellulitis transition to cefdinir 300mg BID x8 days [total 10-day course] per hospitalist service
-Stable for discharge home today
-Repeat labs 1 week
-OP cardiac follow up arranged
-d/w nursing
Addendum entered and electronically signed by Dahiana Olivera PA-C 05/16/23 11:09:
interaction between keflex and tikosyn noted. d/w hospitalist. will plan for cefdinir 300mg BID x8 days in place on keflex.
Original Note:
Today's Communication / Plan
-
remains in SR on tikosyn 250mcg Q12H
xarelto 20mg QPM
toprol 50mg daily
BMP/mag in 1 week
keflex 500mg QID for 8 additional days
for DC
OP cardiac follow up arranged
Impression / Plan
-
PCP: Dr. Sammi Saeed
Cardiology: Dr. Finch
EP: Dr. Dagoberto Jimenez
Impression:
Direct admission for Tikosyn loading for persistent Afib 05/13/23
Afib with RVR on admission 05/13/23
Paroxysmal to persistent Afib
s/p PVI 07/2016
s/p PVI 04/22/17
previous sotalol use, last dose 05/07/23
Chronic Xarelto OAC
Hepatitis C
Moderate MR
Recovered CM EF 45% 2016 and now 60-65% by echo 02/02/19
LLE cellulitis
Echo 02/02/19: EF 60-65%, Mobile echo density consistent with mitral valve chordal structure, mild MR
Echo 05/13/23: EF 52%, mild MR, mild to mod TR with PAP 19 mmHg
Plan:
-He presented as a direct admission for Tikosyn, and rapid A. tach upon arrival. He required urgent cardioversion 05/13 which was successful in restoring sinus rhythm
-His Tikosyn dose was lowered as of fourth dose 2 AM due to prolonged QT. QT improving. Remains in sinus rhythm with PACs and 1 brief episode of A. tach overnight. Continue Tikosyn 250 mcg Q12H
-continue higher dose Toprol XL 50 mg daily that was started just prior to admission.
-continue OP Xarelto
-pro-BNP 14920. He denies SOB. Patient is at dry weight. continue OP lasix 40mg daily.
-Outpatient dose of clonidine 0.2 mg BID and norvasc 10mg daily have been continued with hold parameters
-Outpatient dose of lisinopril 40 mg daily has been continued with hold parameters. Cre is stable at 0.8
-he is being treated with IV ancef for LLE cellulitis per hospitalists. He was treated for cellulitis at [facility] [address] early March and he says he completed his outpatient course of antibiotics. Plan to transition to Keflex 500 mg 4 times
daily for 8 additional days to complete 10-day course.
-he was also hypokalemic and hypomagnesemic during [facility] admission. will place on standing dose of po KCl 10 mEq daily. will need BMP in 1 week upon DC
-for DC today
-OP cardiac follow up arranged
-d/w nursing
HPI: Patient was seen in the office 04/24/23 following an admission to [facility] [address] for cellulitis, hypomagnesemia and hypokalemia. During that admission he had a recurrence of Afib that was managed with a CV prior to d/c on 03/22/23. Patient was
in SR when he saw Dr. Finch in the office 04/24/23, but then called the office to report recurrence of Afib on 05/07/23. Patient was told to stop sotalol, increase Toprol XL to 50 mg daily and was scheduled for Tikosyn admission 05/13/23. Patient is
not sure what his HR was prior to admission, but HR on admission to IVU was 173 bpm. He complains of BAUGH, but no chest pain or palpitations.
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
Subjective
Date of Service: May 16, 2023
feeling well. no palpitations. reports left leg improving
Objective
Labs:
05/15/23 04:58
05/15/23 04:58
Labs
Hgb 12.5 g/dL (13.0-18.0) L 05/15/23 04:58
Hct 36.0 % (39.0-52.0) L 05/15/23 04:58
Plt Count 156 10^3/uL (130-400) 05/15/23 04:58
Sodium 137 mmol/L (135-145) 05/15/23 04:58
Potassium 3.6 mmol/L (3.5-5.1) 05/15/23 04:58
BUN 14 mg/dl (9-20) 05/15/23 04:58
Creatinine 0.5 mg/dL (0.7-1.3) L 05/15/23 04:58
Glucose 126 mg/dl (70-99) H 05/15/23 04:58
Vital Signs and I&O:
Vital Signs
Temp Pulse Resp BP Pulse Ox
97.9 F 78 20 147/88 96
05/16/23 06:56 05/16/23 08:47 05/16/23 06:56 05/16/23 08:47 05/16/23 06:56
Vital Signs
Temp Pulse Resp BP Pulse Ox
97.9 F 78 20 147/88 96
05/16/23 06:56 05/16/23 08:47 05/16/23 06:56 05/16/23 08:47 05/16/23 06:56
Intake & Output
05/14/23 05/15/23 05/16/23 05/17/23
07:59 07:59 07:59 07:59
Intake Total 490 / 850 1000 / 1240 720 / 720
Balance 490 / 850 1000 / 1240 720 / 720
Physical Exam
Physical Exam
GEN: No distress, awake, alert, oriented x3.
HEENT: supple, anicteric, mmm, eomi
LUNGS: CTA B/L, no wheezes/rales
CV: Reg, S1/S2, no murmur
ABD: soft, BS+, NT/ND
EXT: No cyanosis, clubbing. 1+ edema of LLE with erythema of lateral calf
NEURO: Gross non-focal
SKIN: Warm, pink, dry. No rash
--- NOTE | 2023-05-16 10:13 | W.DS.TRANS ---
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
-
Discharge Instructions:
Discharge Diagnosis/Procedures atach s/p cardioversion 05/13, tikosyn loading,
left leg celluitis
Diet 2 Gram Sodium,Restrict fluids to 64 oz
Activity As tolerated
Driving Restrictions As prior to admission
Bathing Restrictions None
Blood Work BMP and magnesium in 1 week
Specialty Instructions Weigh Daily
Instructions: *[facility]CA Heart Failure Instructions
Stand-Alone Forms:
Changes to Home Medications: Yes
Discharge Medications:
DC Medications w/original date entered in [employer]
clonidine HCl 0.1 mg tablet 0.2 mg PO BID 02/07/16
pantoprazole 40 mg tablet,delayed release 40 mg PO DAILY 02/07/16
furosemide 40 mg tablet 40 mg PO DAILY ##30 02/08/16
atorvastatin 10 mg tablet 10 mg PO QPM 07/23/16
rivaroxaban 20 mg tablet (Xarelto) 20 mg PO QPM ##30 07/23/16
calcium carbonate 600 mg calcium (1,500 mg) tablet 600 mg PO DAILY 08/15/17
cholecalciferol (vitamin D3) 50 mcg (2,000 unit) tablet 1,000 unit PO DAILY 08/15/17
magnesium oxide 500 mg capsule 500 mg PO DAILY 08/15/17
mesalamine 1.2 gram tablet,delayed release 4.8 g PO DAILY 05/13/23
amlodipine 10 mg tablet 10 mg PO DAILY #1 tab 05/16/23
dofetilide 250 mcg capsule 250 mcg PO Q12 #60 caps 05/16/23
lisinopril 20 mg tablet 40 mg PO DAILY #1 tab 05/16/23
metoprolol succinate 50 mg tablet,extended release 24 hr 50 mg PO DAILY #1 tab 05/16/23
pantoprazole 40 mg tablet,delayed release 40 mg PO DAILY #1 tab 05/16/23
potassium chloride 10 mEq tablet,extended release(part/cryst) 10 meq PO DAILY #30 tabs 05/16/23
rivaroxaban 20 mg tablet (Xarelto) 20 mg PO QPM #1 tab 05/16/23
Home Medication Changes
tikosyn and potassium are new
Pending Results: No
--- NOTE | 2023-05-16 11:08 | PTCARENOTE ---
pt continues to be SR on the monitor with PACs and BBB, HR in the 60s, VSS. QTc post Tikosyn was 484, notified Dahiana Olivera NP. OK for d/c. pt educated on plan of care for the day and pt verbalized understanding. call keyes within reach.
--- NOTE | 2023-05-16 11:11 | W.DS.TRANS ---
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
-
Discharge Instructions:
Discharge Diagnosis/Procedures atach s/p cardioversion 05/13, tikosyn loading,
left leg celluitis
Diet 2 Gram Sodium,Restrict fluids to 64 oz
Activity As tolerated
Driving Restrictions As prior to admission
Bathing Restrictions None
Blood Work BMP and magnesium in 1 week
Specialty Instructions Weigh Daily
Instructions: *DCA Heart Failure Instructions
Stand-Alone Forms:
Changes to Home Medications: Yes
Discharge Medications:
DC Medications w/original date entered in [employer]
clonidine HCl 0.1 mg tablet 0.2 mg PO BID 02/07/16
pantoprazole 40 mg tablet,delayed release 40 mg PO DAILY 02/07/16
furosemide 40 mg tablet 40 mg PO DAILY ##30 02/08/16
atorvastatin 10 mg tablet 10 mg PO QPM 07/23/16
rivaroxaban 20 mg tablet (Xarelto) 20 mg PO QPM ##30 07/23/16
calcium carbonate 600 mg calcium (1,500 mg) tablet 600 mg PO DAILY 08/15/17
cholecalciferol (vitamin D3) 50 mcg (2,000 unit) tablet 1,000 unit PO DAILY 08/15/17
magnesium oxide 500 mg capsule 500 mg PO DAILY 08/15/17
mesalamine 1.2 gram tablet,delayed release 4.8 g PO DAILY 05/13/23
amlodipine 10 mg tablet 10 mg PO DAILY #1 tab 05/16/23
cefdinir 300 mg capsule 300 mg PO BID #16 caps 05/16/23
dofetilide 250 mcg capsule 250 mcg PO Q12 #60 caps 05/16/23
lisinopril 20 mg tablet 40 mg PO DAILY #1 tab 05/16/23
metoprolol succinate 50 mg tablet,extended release 24 hr 50 mg PO DAILY #1 tab 05/16/23
pantoprazole 40 mg tablet,delayed release 40 mg PO DAILY #1 tab 05/16/23
potassium chloride 10 mEq tablet,extended release(part/cryst) 10 meq PO DAILY #30 tabs 02/29/24
rivaroxaban 20 mg tablet (Xarelto) 20 mg PO QPM #1 tab 05/16/23
Home Medication Changes
tikosyn and potassium are new
cefdinir x8 days to complete abx couse
Pending Results: No
Additional Pending Results:
dictation # [id number]
--- NOTE | 2023-05-16 14:22 | PTCARENOTE ---
d/c instructions read to pt and pt verbalized understanding. pt left with belongings from room, tikosyn script, instructions and blood work script. iv and tele removed. pt left via wheelchair with staff member.
== END 2023-05-16 14:00 | disposition home or self-care (01) | DRG 309 ==
LOC: IVU 10:01
PROVIDERS: Physician Assistant Medical; ADMITTING PHYSICIAN Nuclear Medicine Nuclear Cardiology; CONSULT PHYSICIAN Family Medicine; FAMILY PHYSICIAN Family Medicine
PROC: 5A2204Z Restoration of Cardiac Rhythm, Single (ICD-10-PCS; 2023-05-13)
DX: I48.19 Other persistent atrial fibrillation (principal); I50.22 Chronic systolic (congestive) heart failure; L03.116 Cellulitis of left lower limb; K51.90 Ulcerative colitis, unspecified, without complications; I47.19 Other supraventricular tachycardia; Z79.01 Long term (current) use of anticoagulants; E87.6 Hypokalemia; E83.42 Hypomagnesemia; B19.20 Unspecified viral hepatitis C without hepatic coma; I11.0 Hypertensive heart disease with heart failure; E78.5 Hyperlipidemia, unspecified; K21.9 Gastro-esophageal reflux disease without esophagitis; E66.09 Other obesity due to excess calories; Z68.31 Body mass index [BMI] 31.0-31.9, adult; Z11.52 Encounter for screening for COVID-19
CPT/HCPCS: 80048; 80053; 81003; 81015; 83735; 83880; 84145; 85025; 85027; 87040; 87502; 87811; 92960; 93005; 93306; 93971